=== PATIENT | male | born 1945 | race Caucasian/White ===

== ENCOUNTER → 2021-03-29 | Outpatient (CLI) | payer MEDICARE ==
[~2021-03-29] MED LIST: CEFTRIAXON2 GM/50 ML IVP; DIGOXIN250 MCG PO; ELIQUIS5 MG PO; FISH OIL PO; LANOXIN250 MCG PO; MULTIVITAMINS1 EAC8 PO; PROTONIX20 MG PO; TOPROL XL25 MG PO
== END ==
LOC: RAD 09:23
PROVIDERS: ATTEND Internal Medicine Cardiovascular Disease
DX: I38 Endocarditis, valve unspecified (principal)
CPT/HCPCS: 93306

== ENCOUNTER → 2021-03-31 | Day surgery (SDC) | payer MEDICARE ==
[~2021-03-31] VITALS: Ht 180.3 cm; Wt 79.4 kg
[2021-03-31] VITALS (9 sets, daily range): BP systolic 72–100; BP diastolic 41–59
[~2021-03-31] MED LIST changes: +BENZOCAINE 20% SPR 60 ML CAN ONE; +EPHEDRINE SULFATE INJ 50 MG/ML VIAL ONE; +MIDAZOLAM HCL 2 MG/2 ML VIAL ONE; +POVIDONE IODINE 0.05% 0.05 % ML PO ONE; +PROPOFOL IV EMULSION 10 MG/ML 20 ML VIAL ONE; +SODIUM CHLORIDE 0.9% 1000ML 1,000 ML ONE
== END | disposition home or self-care (01) ==
LOC: CATH LAB 08:30
PROVIDERS: ATTEND Internal Medicine Cardiovascular Disease
DX: I34.0 Nonrheumatic mitral (valve) insufficiency (principal); I07.1 Rheumatic tricuspid insufficiency; I71.6 Thoracoabdominal aortic aneurysm, without rupture; I38 Endocarditis, valve unspecified; K22.70 Barrett's esophagus without dysplasia; F41.9 Anxiety disorder, unspecified; Z91.018 Allergy to other foods; Z79.02 Long term (current) use of antithrombotics/antiplatelets
CPT/HCPCS: 93312; 93320; 93325; J2250; J2704; J7030; 93307

== ENCOUNTER → 2021-05-13 | Day surgery (SDC) | payer MEDICARE ==
[2021-05-12 11:39] LABS: BASOPHILS # (AUTO) 0.1 (0.0-0.1); BASOPHILS % 1.3 % (0.0-1.0); EOSINOPHILS # (AUTO) 0.1 (0.0-0.4); EOSINOPHILS % 2.9 % (0.0-6.0); HEMATOCRIT 41.9 % (38.2-49.6); HEMOGLOBIN 13.4 g/dL (14.0-18.0); LYMPHOCYTES # (AUTO) 0.9 (1.0-3.2); LYMPHOCYTES % 20.4 % (18.0-39.1); MEAN CORPUSCULAR HEMOGLOBIN 28.8 pg (28-32); MEAN CORPUSCULAR VOLUME 90.1 fL (81-99); MONOCYTES # (AUTO) 0.4 (0.2-0.8); MONOCYTES % 9.9 % (4.4-11.3); NEUTROPHILS # (AUTO) 2.9 (2.1-6.9); NEUTROPHILS % 65.3 % (38.7-80.0); PLATELET COUNT 168 x10e3/uL (140-360); RED BLOOD COUNT 4.65 x10e6/uL (4.3-5.7); RED CELL DISTRIBUTION WIDTH 13.8 % (11.7-14.4)
[~2021-05-13] MED LIST changes: -BENZOCAINE 20% SPR 60 ML CAN ONE; -EPHEDRINE SULFATE INJ 50 MG/ML VIAL ONE; -MIDAZOLAM HCL 2 MG/2 ML VIAL ONE; -POVIDONE IODINE 0.05% 0.05 % ML PO ONE; -PROPOFOL IV EMULSION 10 MG/ML 20 ML VIAL ONE; -SODIUM CHLORIDE 0.9% 1000ML 1,000 ML ONE
[2021-05-13 08:15] VITALS: BP 108/61
== END | disposition home or self-care (01) ==
LOC: OR 06:51
PROVIDERS: ATTEND Internal Medicine Gastroenterology
DX: K90.0 Celiac disease (principal); K22.70 Barrett's esophagus without dysplasia; K44.9 Diaphragmatic hernia without obstruction or gangrene; K29.70 Gastritis, unspecified, without bleeding; K57.10 Diverticulosis of small intestine without perforation or abscess without bleeding; Q43.8 Other specified congenital malformations of intestine; K22.8 Other specified diseases of esophagus; Z01.812 Encounter for preprocedural laboratory examination; Z20.822 Contact with and (suspected) exposure to COVID-19; Z68.24 Body mass index [BMI] 24.0-24.9, adult
CPT/HCPCS: 36415; 43239; 85025; U0002

== ENCOUNTER 2024-06-24 17:36 | Emergency (ER) | payer MEDICARE ==
[~2024-06-24] VITALS: Ht 180.3 cm; Wt 79.4 kg
[2024-06-24 18:01] VITALS: PULSE 85; RESP 17; TEMP 97.9; O2SAT 99
[2024-06-24] MEDS: APIXABAN 5 MG TABLET PO ONE (18:29)
[2024-06-24] MEDS ORDERED: ELIQUIS5 MG PO (18:29)
== END 2024-06-24 18:54 | disposition home or self-care (01) ==
LOC: ER 18:03
DX: I27.82 Chronic pulmonary embolism (principal); I71.20 Thoracic aortic aneurysm, without rupture, unspecified; I10 Essential (primary) hypertension
CPT/HCPCS: 99283

== ENCOUNTER → 2024-06-24 | Emergency (ER) | payer MEDICARE | END | disposition left against medical advice (07) | LOC: FSED 17:20 | DX: I26.99 Other pulmonary embolism without acute cor pulmonale (principal) ==